=== PATIENT | male | born 1960 | race Asian ===

== ENCOUNTER → 2023-08-28 06:28 | Outpatient (REF) | payer BC, SELFPAY ==
[2023-08-28 09:44] LABS: % Immature Granulocytes 0.7 % (0-0.5); % Lymphocytes 36.1 % (20.5-51.1); % Monocytes 8.3 % (1.7-9.3); % Neutrophils 45.9 % (42.2-75.2); Absolute Basophils 0.1 10^3/uL (0-0.2); Absolute Eosinophils 0.3 10^3/uL (0-0.7); Absolute Lymphocytes 1.7 10^3/uL (1.2-3.4); Absolute Monocytes 0.4 10^3/uL (0.1-0.6); Absolute Neutrophils 2.1 10^3/uL (1.4-6.5); Hematocrit 41.4 % (39.0-52.0); Hemoglobin 14.7 g/dL (13.0-18.0); Mean Corp Hgb Conc. 35.5 g/dL (33.0-37.0); Mean Corpuscular Hgb 30.6 pg (27.0-31.0); Mean Corpuscular Volume 86.1 fL (80.0-94.0); Mean Platelet Volume 9.5 fL (7.4-10.4); Nucleated Red Blood Cells % 0 % (-); Platelet Count 206 10^3/uL (130-400); Red Blood Cell Count 4.81 10^6/uL (4.70-6.10); Red Cell Dist. Width 12.6 % (11.5-14.5); White Blood Cell Count 4.6 10^3/uL (4.8-10.8)
[2023-08-28 09:57] LABS: ALT (SGPT) 54 U/L (0-50); AST (SGOT) 34 U/L (17-59); Albumin 4.5 g/dl (3.5-5.0); Alkaline Phosphatase 74 U/L (38-126); Blood Urea Nitrogen 18 mg/dl (9-20); Calcium 9.6 mg/dl (8.4-10.2); Carbon Dioxide 24 mmol/L (22-30); Chloride 108 mmol/L (98-107); Glucose 105 mg/dl (70-99); HDL Cholesterol 34 mg/dl; LDL Cholesterol, Calculated 134 mg/dl; Potassium 4.4 mmol/L (3.5-5.1); Sodium 141 mmol/L (135-145); Total Bilirubin 0.5 mg/dl (0.2-1.3); Total Cholesterol 230 mg/dl (50-199); Total Protein 7.2 g/dl (6.3-8.2); Triglyceride 314 mg/dl (10-149); Very Low Density Lipoprotein 62 mg/dl (0-30); eGFR > 60.00
[2023-08-28 10:16] LABS: Glycohemoglobin (HgbA1c) 5.7 % (4.0-5.6)
[2023-08-28 10:24] LABS: TSH 4.38 uIU/ml (0.47-4.68)
[2023-08-29 21:37] LABS: PSA Total 1.7 ng/mL (0.0-4.0)
== END ==
LOC: HWLAB 06:28
PROVIDERS: ATTENDING PHYSICIAN Physician Assistant Medical
DX: E78.2 Mixed hyperlipidemia (principal); R73.03 Prediabetes; Z00.00 Encounter for general adult medical examination without abnormal findings; Z13.29 Encounter for screening for other suspected endocrine disorder; Z12.5 Encounter for screening for malignant neoplasm of prostate
CPT/HCPCS: 36415; 80053; 80061; 83036; 84153; 84154; 84443; 85025

== ENCOUNTER → 2023-09-19 06:13 | Outpatient (REF) | payer BC, SELFPAY ==
[2023-09-19 10:26] LABS: HDL Cholesterol 30 mg/dl; LDL Cholesterol, Calculated 137 mg/dl; Total Cholesterol 218 mg/dl (50-199); Triglyceride 257 mg/dl (10-149); Very Low Density Lipoprotein 51 mg/dl (0-30)
[2023-09-21 13:22] LABS: HDL Particle Size, NMR 8.2 nm (>=8.9); LDL Particle Number, NMR 2147 nmol/L (<=1135); LDL Particle Size, NMR 20.1 nm (>=20.7); Large HDL Particle Number, NMR <2.8 umol/L (>=4.2); Large VLDL Particle Number,NMR 11.4 nmol/L (<=2.7); Small LDL Particle Number, NMR >1085 nmol/L (<=634); VLDL Particle Size, NMR 54.1 nm (<=46.7)
== END ==
LOC: HWLAB 06:13
PROVIDERS: ATTENDING PHYSICIAN Internal Medicine Cardiovascular Disease; FAMILY PHYSICIAN Physician Assistant Medical
DX: E78.2 Mixed hyperlipidemia (principal)
CPT/HCPCS: 36415; 80061; 83704

== ENCOUNTER → 2024-08-22 06:10 | Outpatient (REF) | payer BC, SELFPAY ==
[2024-08-22 09:25] LABS: Hematocrit 41.7 % (39.0-52.0); Hemoglobin 14.4 g/dL (13.0-18.0); Mean Corp Hgb Conc. 34.5 g/dL (33.0-37.0); Mean Corpuscular Volume 88.0 fL (80.0-94.0); Nucleated Red Blood Cells % 0 % (-); Platelet Count 196 10^3/uL (130-400); Red Cell Dist. Width 12.6 % (11.5-14.5)
[2024-08-22 09:58] LABS: ALT (SGPT) 43 U/L (0-50); AST (SGOT) 27 U/L (17-59); Albumin 4.7 g/dl (3.5-5.0); Alkaline Phosphatase 54 U/L (38-126); Blood Urea Nitrogen 17 mg/dl (9-20); Calcium 9.0 mg/dl (8.4-10.2); Carbon Dioxide 24 mmol/L (22-30); Chloride 109 mmol/L (98-107); Glucose 97 mg/dl (70-99); Potassium 4.5 mmol/L (3.5-5.1); Sodium 142 mmol/L (135-145); Total Protein 7.5 g/dl (6.3-8.2); eGFR > 60.00
[2024-08-22 10:31] LABS: PSA, Total - Screen 1.79 ng/ml (0.0-4.0); TSH 3.14 uIU/ml (0.47-4.68)
[2024-08-22 11:55] LABS: Glycohemoglobin (HgbA1c) 5.6 % (4.0-5.6)
== END ==
LOC: HWLAB 06:10
PROVIDERS: ATTENDING PHYSICIAN Physician Assistant Medical
DX: E78.2 Mixed hyperlipidemia (principal); E06.3 Autoimmune thyroiditis; R73.03 Prediabetes; I10 Essential (primary) hypertension; E05.00 Thyrotoxicosis with diffuse goiter without thyrotoxic crisis or storm; Z12.5 Encounter for screening for malignant neoplasm of prostate; Z00.00 Encounter for general adult medical examination without abnormal findings
CPT/HCPCS: 36415; 80053; 83036; 84443; 85025; G0103

== ENCOUNTER → 2024-08-26 06:17 | Outpatient (REF) | payer BC, SELFPAY ==
[2024-08-26 10:22] LABS: HDL Cholesterol 35 mg/dl; LDL Cholesterol, Calculated 168 mg/dl; Very Low Density Lipoprotein 43 mg/dl (0-30)
== END ==
LOC: HWLAB 06:17
PROVIDERS: ATTENDING PHYSICIAN Physician Assistant Medical
DX: E78.2 Mixed hyperlipidemia (principal); I10 Essential (primary) hypertension; E05.00 Thyrotoxicosis with diffuse goiter without thyrotoxic crisis or storm
CPT/HCPCS: 36415; 80061